=== PATIENT | male | born 1970 | race Caucasian/White ===

== ENCOUNTER 2017-11-20 13:46 | Observation (INO) | payer BC ==
[~2017-11-20] VITALS: Ht 177.8 cm; Wt 130.0 kg
[~2017-11-20 13:46] MED LIST: PREDNISONE20 MG PO
[2017-11-20 14:10] LABS: BASOPHIL (%) 0.6 % (0-1); EOSINOPHIL (%) 1.5 % (0-5); EOSINOPHIL COUNT 0.1 K/uL (0-0.3); HEMATOCRIT 46.6 % (38.0-50.0); HEMOGLOBIN 16.5 G/DL (12.5-16.6); IMMATURE GRANULOCYTE (%) 0.1 % (0.0-0.7); LYMPHOCYTE (%) 27.4 % (15-42); MCH 33.2 PG (29.0-34.0); MCHC 35.4 G/DL (30.0-36.0); MCV 93.8 FL (86-99); MONOCYTE COUNT 0.6 K/uL (0-0.8); NEUTROPHIL (%) 62.4 % (45-76); NEUTROPHIL COUNT 4.5 K/uL (1.8-6.4); PLATELET COUNT 213 K/uL (156-360); RBC DIS.WIDTH-CV 12.6 % (11.8-14.6); RBC DIS.WIDTH-SD 43.6 % (39-53); RED BLOOD COUNT 4.97 M/uL (4.00-5.50); WHITE BLOOD COUNT 7.2 K/uL (4.1-10.2)
[2017-11-20 14:22] LABS: D-DIMER ELISA < 150.00 ng/mLDDU (<230)
[2017-11-20 14:23] LABS: PTT 30.8 SEC (25-37)
[2017-11-20 14:33] LABS: TROP-I INTERPRETATION NEGATIVE; TROPONIN-I 0.02 ng/mL (0.0-0.30)
[2017-11-20 14:40] LABS: CHLORIDE 107 MEQ/L (99-109); POTASSIUM 4.3 MEQ/L (3.7-5.4); SODIUM 137 MEQ/L (136-147)
[2017-11-20 14:45] LABS: CREATININE 0.8 MG/DL (0.6-1.3); GFR ESTIMATE (CALCULATED) > 59 mL/min/ (58.99-99999); GLUCOSE 166 mg/dL (70-99); UREA NITROGEN (BUN) 18 mg/dL (9-23)
[2017-11-20 15:25] LABS: THYROTROPIN (TSH) 1.7 MIU/L (0.4-5.5)
[2017-11-20] MEDS ORDERED: FISH OIL 1,0001 EAC7 PO (16:01)
[2017-11-20] MEDS ORDERED: ENALAPRIL MALEA10 MG PO (16:01)
[2017-11-20] MEDS ORDERED: ADULT MULTI G200 MCG PO (16:01)
[2017-11-20 17:45] VITALS: BP 155/95
[2017-11-20 20:20] VITALS: BP 155/85
[2017-11-20 21:07] LABS: TROP-I INTERPRETATION NEGATIVE; TROPONIN-I 0.02 ng/mL (0.0-0.30)
[2017-11-21 02:21] LABS: HEMATOCRIT 47.6 % (38.0-50.0); HEMOGLOBIN 16.8 G/DL (12.5-16.6); MCH 33.5 PG (29.0-34.0); MCHC 35.3 G/DL (30.0-36.0); PLATELET COUNT 213 K/uL (156-360); RBC DIS.WIDTH-CV 12.8 % (11.8-14.6); RBC DIS.WIDTH-SD 44.5 % (39-53); RED BLOOD COUNT 5.01 M/uL (4.00-5.50)
[2017-11-21 02:35] LABS: CHLORIDE 105 mEq/L (99-109); POTASSIUM 4.4 mEq/L (3.7-5.4); SODIUM 141 mEq/L (136-147)
[2017-11-21 02:36] LABS: GLUCOSE 157 mg/dL (70-99)
[2017-11-21 02:40] LABS: CREATININE 0.9 mg/dL (0.6-1.3); GFR ESTIMATE (CALCULATED) > 59 mL/min/ (58.99-99999)
[2017-11-21 02:41] LABS: UREA NITROGEN (BUN) 16 mg/dL (9-23)
[2017-11-21 02:49] LABS: TROP-I INTERPRETATION NEGATIVE; TROPONIN-I < 0.01 ng/mL (0.0-0.30)
[2017-11-21 04:02] LABS: HDL CHOLESTEROL 34 MG/DL (Desirable>=40); LDL CHOLESTEROL 97 mg/dL (Desirable<100); NON-HDL CHOLESTEROL 160 mg/dL (Desirable<160); TOTAL CHOLESTEROL 194 mg/dL (Desirable<200); TRIGLYCERIDES 314 MG/DL (Normal: <150)
[2017-11-21 07:45] VITALS: BP 153/97
[2017-11-21] MEDS ORDERED: CEFDINIR300 MG PO (10:32)
[2017-11-21] MEDS ORDERED: ELIQUIS5 MG PO (10:32)
[2017-11-21] MEDS ORDERED: LOPRESSOR50 MG PO (10:32)
[2017-11-21] MEDS ORDERED: VALSARTAN160 MG PO (10:32)
[2017-11-21] MEDS ORDERED: AZITHROMYCIN500 M1 PO (10:32)
[2017-11-21 15:21] VITALS: BP 117/76
== END 2017-11-21 17:23 | disposition home or self-care (01) ==
LOC: EME 13:46 → EDOF 15:37 → 4SOUTH 15:37 → EDOF 15:37 → ENRESERV 15:39 → 4SOUTH 17:37
PROVIDERS: Emergency Medicine; Hospitalist; Internal Medicine Cardiovascular Disease
DX: I48.92 Unspecified atrial flutter (principal); I11.9 Hypertensive heart disease without heart failure; E11.9 Type 2 diabetes mellitus without complications; F17.210 Nicotine dependence, cigarettes, uncomplicated; E66.01 Morbid (severe) obesity due to excess calories; Z68.41 Body mass index [BMI] 40.0-44.9, adult
CPT/HCPCS: 71045; 80048; 80061; 83735; 84443; 84484; 85025; 85027; 85379; 85610; 85730; 87070; 87205; 87449; 93005; 93306; 99281; 99285; G0378; J0696